=== PATIENT | female | born 1965 | race Caucasian/White ===

== ENCOUNTER 2019-08-29 08:30 | Emergency (ER) | payer OTHER ==
[~2019-08-29] VITALS: Ht 165.1 cm; Wt 59.0 kg
[2019-08-29] MEDS ORDERED: NITR.4SL SL (09:01)
[2019-08-29] MEDS ORDERED: CYCL10 PO (09:58)
[2019-08-29] MEDS ORDERED: Nitrostat0.4 MG SL (09:58)
[2019-08-29] MEDS ORDERED: IBUP800 PO (09:58)
== END 2019-08-29 10:07 | disposition home or self-care (01) ==
LOC: ER 08:30
DX: M62.830 Muscle spasm of back (principal); M41.9 Scoliosis, unspecified
CPT/HCPCS: 72100; 82947; 99283-25